=== PATIENT | male | born 1980 | race Caucasian/White ===

== ENCOUNTER 2021-10-03 08:41 | Emergency (ER) | payer MEDICAID ==
[~2021-10-03] VITALS: Ht 190.5 cm; Wt 90.7 kg
[2021-10-03] MEDS ORDERED: LORazepam 2MG/ML-1ML VIAL IM ONE (09:15)
[2021-10-03 09:22] LABS: Urine WBC None Seen /hpf (0 - 3)
[2021-10-03 10:07] LABS: Potassium 3.9 mmol/L (3.5-5.1)
[2021-10-03 10:09] LABS: Basophils # (auto) 0.1 10 ^3/uL (0-0.2); Basophils % (auto) 1.1 % (0.0-2.0); Eosinophils # (auto) 0.1 10 ^3/uL (0-0.8); Eosinophils % (auto) 2.4 % (0.0-7.0); Hematocrit 40.3 % (41.0-53.0); Hemoglobin 14.1 g/dL (13.5-17.5); Lymphocytes # (auto) 1.3 10 ^3/uL (0.4-5.4); Lymphocytes % (auto) 21.2 % (10.0-50.0); Mean Corpuscular Hemoglobin 30.1 pg (28.0-32.0); Mean Corpuscular Volume 86.1 fL (80.0-100.0); Monocytes # (auto) 0.4 10 ^3/uL (0-1.3); Monocytes % (auto) 7.3 % (0.0-12.0); Neutrophils # (auto) 4.2 10 ^3/uL (1.6-8.6); Nucleated Red Blood Cells % 0.2 %; Red Blood Cells 4.68 10^6/uL (4.5-5.90); Red Cell Distribution Width 13.8 % (11.8-14.3); White Blood Cell 6.1 10^3/uL (4.4-10.8)
[2021-10-03 10:11] LABS: Cannabinoid Screen, Urine POSITIVE (NEGATIVE)
[2021-10-03 10:13] LABS: Albumin 3.5 g/dL (3.4-5.0); BUN/Creatinine Ratio 9.8; Bilirubin, Total 0.7 mg/dL (0.2-1.0); Calcium 9.3 mg/dL (8.5-10.1); Magnesium 2.8 mg/dL (1.6-2.6); Total Protein 7.6 g/dL (6.4-8.2)
[2021-10-03 10:14] LABS: Salicylate < 1.7 mg/dL (2.8-20.0)
[2021-10-03 10:36] LABS: Amphetamine Screen, Urine NEGATIVE (NEGATIVE); Barbiturate Scree,Urine NEGATIVE (NEGATIVE); Benzodiazephine Screen, Urine POSITIVE (NEGATIVE); Cocaine Screen, Urine NEGATIVE (NEGATIVE); Opiate Scree,Urine NEGATIVE (NEGATIVE); Phencyclidine Screen, Urine NEGATIVE (NEGATIVE)
[2021-10-03 10:46] LABS: Urine Bacteria NONE SEEN /hpf (None Seen); Urine Blood Negative /uL (Negative); Urine Specific Gravity 1.008 (1.001-1.035); Urine Sperm PRESENT /hpf (None Seen)
[2021-10-03 11:49] LABS: Acetaminophen < 2.0 ug/mL (10-30)
[2021-10-03] MEDS: QUEtiapine FUMARATE 100 MG TAB PO SCH (20:03)
[2021-10-04] MEDS: VENLAFAXINE HCL 37.5mg XR cap PO SCH (10:42)
[2021-10-04] MEDS: QUEtiapine FUMARATE 100 MG TAB PO SCH (18:40)
[2021-10-04] MEDS ORDERED: AMOXICILLIN/CLAVUL 875 MG TAB PO ONE (22:00)
[2021-10-05] MEDS: VENLAFAXINE HCL 37.5mg XR cap PO SCH (10:14)
[2021-10-05] MEDS: QUEtiapine FUMARATE 100 MG TAB PO SCH (18:06)
[2021-10-06 10:05] VITALS: BP 127/76
[2021-10-06] MEDS: VENLAFAXINE HCL 37.5mg XR cap PO SCH (10:14)
== END 2021-10-06 14:10 | disposition left against medical advice (07) ==
LOC: ER 08:41
DX: R45.851 Suicidal ideations (principal); F31.9 Bipolar disorder, unspecified; F41.9 Anxiety disorder, unspecified; F17.210 Nicotine dependence, cigarettes, uncomplicated; F12.10 Cannabis abuse, uncomplicated; F15.10 Other stimulant abuse, uncomplicated; S60.552A Superficial foreign body of left hand, initial encounter; G40.909 Epilepsy, unspecified, not intractable, without status epilepticus; Z59.00 Homelessness unspecified; Z20.822 Contact with and (suspected) exposure to COVID-19
CPT/HCPCS: 36415; 80053; 80307; 80320; 80329; 81001; 83735; 85025; 87426; 96372; 99285; J2060